=== PATIENT | female | born 1980 | race Two or more races ===

== ENCOUNTER 2022-10-09 12:15 | Inpatient (IN) | payer OTHER ==
[~2022-10-09] VITALS: Ht 165.1 cm; Wt 77.1 kg
[2022-10-10] MEDS ORDERED: AVAPRO300 MG PO (08:38)
[2022-10-11] MEDS ORDERED: GABAPENTIN300 M2 (09:35)
[2022-10-11] MEDS ORDERED: IRBESARTAN75 MG (09:35)
[2022-10-14] MEDS ORDERED: IBUPROFEN800 MG PO (08:39)
== END 2022-10-14 10:56 | disposition home or self-care (01) | DRG 743 ==
LOC: O/R 10-11 05:16 → OB/GYN 10-11 07:00 → SURG 10-11 11:14 → OB/GYN 10-11 12:15 → SURH 10-13 14:26
PROVIDERS: ADMIT Specialist; ATTEND Specialist
PROC: 0UB10ZZ Excision of Left Ovary, Open Approach (ICD-10-PCS; 2022-10-11)
PROC: 0UT90ZZ Resection of Uterus, Open Approach (ICD-10-PCS; principal; 2022-10-11 07:00)
DX: D25.1 Intramural leiomyoma of uterus (principal); D25.2 Subserosal leiomyoma of uterus; N80.03 Adenomyosis of the uterus; N72 Inflammatory disease of cervix uteri; N83.12 Corpus luteum cyst of left ovary; Z20.822 Contact with and (suspected) exposure to COVID-19